=== PATIENT | female | born 1970 | race Caucasian/White ===

== ENCOUNTER → 2017-05-07 | Outpatient (CLI) | payer BC ==
[~2017-05-07] MED LIST: MULTTAB58 PO; [UNRECOGNIZED DRUG - CODE] TOP
--- NOTE | 2017-05-07 15:28 | MAMMOGRAPHY REPORT ---
BILATERAL DIGITAL SCREENING MAMMOGRAM TOMOSYNTHESIS WITH CAD: 05/07/2017 CLINICAL HISTORY: Routine screening. Patient has no complaints. TECHNIQUE: Breast tomosynthesis in addition to standard 2D mammography was performed. Current study was also evaluated with a Computer Aided Detection (CAD) system. COMPARISON: Comparison is made to exams dated: 03/19/2016 mammogram, 03/16/2015 mammogram, 03/11/2014 mammogram, 03/02/2013 mammogram, 02/29/2012 mammogram, and 02/27/2011 mammogram - [facility]. BREAST COMPOSITION: The tissue of both breasts is extremely dense, which lowers the sensitivity of m ammography. FINDINGS: There is an asymmetry in the anterior left breast, 2 cm distal to the nipple on the CC vie w which may project inferiorly based on the MLO view. Additional spot compression tomosynthesis view s and possible ultrasound are recommended. No other suspicious mass, architectural distortion or cluster of microcalcifications is seen [place]. IMPRESSION: ACR BI-RADS CATEGORY 0: INCOMPLETE EVALUATION: NEED ADDITIONAL IMAGING EVALUATION The asymmetry in the left breast needs additional evaluation. The patient will be called to schedule an appointment. Approximately 10% of breast cancers are not detected with mammography. A negative mammographic report should not delay biopsy if a clinically suggestive mass is present. Willow Escalante M.D. ay/:05/07/2017 08:11:06 [employer]: Perla HILLIARD(Monica)(Lisha), [facility] letter sent: Addl Imaging 0 BI-RADS Code: ACR BI-RADS Category 0: Incomplete Evaluation: Need Additional Imaging Evaluation
== END | disposition home or self-care (01) ==
LOC: C.MAMM 07:32
PROVIDERS: ATTEND Obstetrics & Gynecology
DX: Z12.31 Encounter for screening mammogram for malignant neoplasm of breast (principal); N64.89 Other specified disorders of breast

== ENCOUNTER → 2017-05-15 | Outpatient (CLI) | payer OTHER ==
--- NOTE | 2017-05-15 14:59 | MAMMOGRAPHY REPORT ---
UNILATERAL LEFT DIGITAL DIAGNOSTIC MAMMOGRAM TOMOSYNTHESIS AND TARGETED LEFT ULTRASOUND: 05/15/2017 CLINICAL HISTORY: 46-year-old woman called back from screening mammography for an asymmetry in the an terior left breast, best seen on the CC tomosynthesis images. TECHNIQUE: Spot compression left CC and MLO tomosynthesis images were obtained. COMPARISON: Comparison is made to exams dated: 05/07/2017 mammogram, 03/19/2016 mammogram, 03/16/2015 mammogram, 03/11/2014 mammogram, 03/02/2013 mammogram, and 09/01/2012 mammogram - [facility]. BREAST COMPOSITION: The tissue of the left breast is extremely dense, which lowers the sensitivity o f mammography. FINDINGS: The additional spot compression tomosynthesis views of the left breast demonstrate partial effacement of the asymmetry in the anterior breast on the CC view. No definite persistent mass on th e corresponding MLO tomosynthesis images. No focal area of architectural distortion or suspicious mi crocalcifications. Further evaluation with ultrasound was performed. Targeted ultrasound was performed throughout the inferior, retroareolar and 12:00 axes of the left br east. In the 6:00 left breast, 2 cm from the nipple, there is an anechoic cyst cluster versus cyst w ith 2 thin internal nonvascular septations, measuring 6.9 x 3.9 x 6.2 mm. A second similar appearing cyst cluster versus cyst with thin internal nonvascular septations is identified in the retroareolar left breast measuring 8.2 x 4.4 x 7.4 mm. This likely corresponds to the asymmetry seen on the scre ening tomosynthesis images and is benign. No other suspicious solid or cystic mass is identified in the left breast on targeted ultrasound. IMPRESSION: ACR BI-RADS CATEGORY 2: BENIGN, TARGETED ULTRASOUND ACR BI-RADS CATEGORY 2: BENIGN There are two benign cyst clusters versus cyst with a few thin internal nonvascular septations in the 6:00 and retroareolar left breast, one of which is thought to correlate with the mammographic asymme try. These findings are compatible with benign fibrocystic changes. There is no mammographic or tar geted sonographic evidence of malignancy in the left breast. Recommend return to [facility]. These results and recommendations were discussed with the patient at the time of the exam. Approximately 10% of breast cancers are not detected with mammography. A negative mammographic report should not delay biopsy if a clinically suggestive mass is present. Willow Escalante M.D. ay/:05/15/2017 09:22:38 [employer] Inspector: Diane OSCAR)(Lisha), [facility] letter sent: Normal 1/2 BI-RADS Code: ACR BI-RADS Category 2: Benign Ultrasound BI-RADS: ACR BI-RADS Category 2: Benign
== END | disposition home or self-care (01) ==
LOC: C.MAMM 08:43
PROVIDERS: ATTEND Obstetrics & Gynecology
DX: R92.2 Inconclusive mammogram (principal)